=== PATIENT | male | born 1995 | race Caucasian/White ===

== ENCOUNTER → 2025-05-07 06:25 | Outpatient (REF) | payer OTHER, SELFPAY | LOC: HWRAD 06:25 | PROVIDERS: ATTENDING PHYSICIAN Family Medicine | DX: R04.2 Hemoptysis (principal) | CPT/HCPCS: 71046 ==

== ENCOUNTER → 2025-05-25 12:23 | Outpatient (REF) | payer OTHER, SELFPAY | LOC: RAD 12:23 | PROVIDERS: ATTENDING PHYSICIAN Internal Medicine Hematology & Oncology; FAMILY PHYSICIAN Physician Assistant Medical | DX: J86.9 Pyothorax without fistula (principal); R63.4 Abnormal weight loss | CPT/HCPCS: 71260; 74177; Q9967 ==

== ENCOUNTER 2025-10-30 05:07 | Emergency (ER) | payer OTHER, SELFPAY ==
[2025-10-30 05:17] VITALS: BP 180/94
[2025-10-30 06:22] LABS: COVID-19 Antigen Negative (Negative)
[2025-10-30 07:52] VITALS: BP 144/87
[2025-10-30 07:53] VITALS: BP 144/87; BMI 25.1
[2025-10-30 08:00] VITALS: BP 126/79
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
== END 2025-10-30 09:01 | disposition home or self-care (01) ==
LOC: EMR 05:07
PROVIDERS: Emergency Medicine; EMERGENCY PHYSICIAN Emergency Medicine; FAMILY PHYSICIAN Physician Assistant Medical
DX: T23.002A Burn of unspecified degree of left hand, unspecified site, initial encounter (principal); X10.2XXA Contact with fats and cooking oils, initial encounter; R23.4 Changes in skin texture; Z11.52 Encounter for screening for COVID-19
CPT/HCPCS: 99283; 87502; 87811